=== PATIENT | male | born 2000 | race Caucasian/White ===

== ENCOUNTER 2024-05-15 02:16 | Emergency (ER) | payer SELFPAY ==
[~2024-05-15] VITALS: Ht 177.8 cm; Wt 101.0 kg
[2024-05-15 02:34] VITALS: O2SAT 98
[2024-05-15 02:35] VITALS: BP 144/71; PULSE 84; RESP 18; TEMP 37; O2SAT 99
[2024-05-15] MEDS ORDERED: PRED5TAB MT (04:36)
[2024-05-15] MEDS ORDERED: ALBU18HF2 IH (04:36)
== END 2024-05-15 05:05 | disposition home or self-care (01) ==
LOC: ER 02:16
DX: R06.02 Shortness of breath (principal); F17.210 Nicotine dependence, cigarettes, uncomplicated
CPT/HCPCS: 71045; 93005; 99283